=== PATIENT | male | born 1960 | race Caucasian/White ===

== ENCOUNTER → 2018-08-22 10:41 | Outpatient (CLI) | payer OTHER, SELFPAY ==
[2018-08-22 09:45] VITALS: BMI 30.4
--- NOTE | 2018-08-22 13:04 | PFT ---
INTRODUCTION: The patient is a 57-year-old male that presents for pulmonary function studies secondary to a diagnosis of shortness of breath. Respiratory therapy reports good patient effort. Bronchodilators were used during testing. INTERPRETATION: Forced expiration spirometry demonstrates the presence of a mild large airways obstructive ventilatory defect. There was no significant response to aerosolized bronchodilators, based upon strict ATS criteria. Spirograms are of good quality and plateau gradually indicating slow emptying of the lungs. Body plethysmography was performed and reveals an elevated TLC and RV, indicative of underlying hyperinflation and air-trapping. Diffusing capacity by single breath CO is within normal limits. IMPRESSION: These pulmonary function studies demonstrate the presence of an irreversible mild large airways obstructive ventilatory defect with associated hyperinflation and air-trapping. There are no previous pulmonary function studies available for comparison.
--- OUTSIDE RECORDS SUMMARY | 2018-10-26 19:31 | XMS RPT_ITS ---
:1960 Author Organization [facility] Care Team Providers Name Role Phone Festus Figueroa Attending Unavailable Meir Gar Referring Unavailable Festus Figueroa Attending Unavailable Festus Figueroa Referring Unavailable Meir Gar Primary Care Unavailable Omero Johnston D.O. Attending Unavailable Omero Johnston D.O. Referring Unavailable PROBLEMS PROBLEMS DATE TYPE CONDITION / CODE ATTENDING STATUS SOURCE 08/29/2018 Unknown R06.00 - Dyspnea, K[place] unspecified / D.O. Community R06.00(ICD-10) Hospital Repository 08/25/2018 Unknown R06.09 - Other Festus Figueroa Active [place] forms of dyspnea Community / R06.09(ICD-10) Hospital Repository PROCEDURES PROCEDURES No Procedure Records FoundRESULTS RESULTS PULMONARY FUNCTION Observed: 08/22/2018 Status: F Source: ALEJANDRO TEST 1:06 PM [facility] REPOSITORY [facility] Pulmonary Services/Neurology [address] [place] [address] MR#: [id number] Acct: [id number] Name: PATRICIA URBINA Rep #: [id number] : 1960 57 From: Omero Johnston DO Referring Dr: Festus Figueroa MD Status: REG CLI Ordering Dr: Date: Location: [facility] Sex: M C INTRODUCTION: The patient is a 57-year-old male that presents for pulmonary function studies secondary to a diagnosis of shortness of breath. Respiratory therapy reports good patient effort. Bronchodilators were used during testing. INTERPRETATION: Forced expiration spirometry demonstrates the presence of a mild large airways obstructive ventilatory defect. There was no significant response to aerosolized bronchodilators, based upon strict ATS criteria. Spirograms are of good quality and plateau gradually indicating slow emptying of the lungs. Body plethysmography was performed and reveals an elevated TLC and RV, indicative of underlying hyperinflation and air-trapping. Diffusing capacity by single breath CO is within normal limits. IMPRESSION: These pulmonary function studies demonstrate the presence of an irreversible mild large airways obstructive ventilatory defect with associated hyperinflation and air-trapping. There are no previous pulmonary function studies available for comparison. 08/22/18 1306 <Electronically signed by Omero Johnston DO> Date Omero Johnston DO CC: Festus Figueroa MD; Meir Gar MD Date Dictated: 08/22/18 1304 Date Transcribed: 08/22/181303 Field Account Director: DB Signed PULMONARY VISIT REPORT Observed: 08/22/2018 Status: F Source: ZOAR 12:10 PM [facility] REPOSITORY [facility] Pulmonary Medicine of [address] [place] [address] OFFICE VISIT Date of Service: 08/22/18 MR#: [id number] Acct: [id number] Name: PATRICIA URBINA Rep #: [id number] : 1960 Provider: Festus Figueroa MD Age/Sex: 57/M Location: [facility] [place] Status: Signed Assessment AND Plan Problems 1. Dyspnea on exertion R06.09 Plan Patient is reporting progression of respiratory status over the last 5-6 years. Differential diagnosis would include asthma, hypersensitivity pneumonitis or connective tissue associated pulmonary fibrosis. Discussed with the patient about the possibility of evaluating for CHF, but after review of the risks, benefits and alternatives, patient would like to limit testing if possible. Will obtain a complete PFT. Clinical suspicion that patient will be stepped off in therapy from Flovent to a combination inhaler if asthma is found. Otherwise, further testing may be necessary. Obtain complete PFT. No change in medications until further information is available. Orders Orders: Medications New: Plan Detail Follow Up 1 Month (BWA) HPI Asthma: Chief Complaint: Shortness of breath Details: Patient is a 57-year-old [place] gentleman, currently under the care of Dr. Gar, who presents for evaluation secondary to shortness of breath and frequent prednisone burst. Patient reports that he is noted increasing shortness of breath over the last 5-6 years. Patient states this is typically worse in the winter, but improves at night. Patient denies any problems with sleeping. Patient has been placed on Flovent daily with albuterol as needed, but states that he is been on a prednisone burst 3 times so far this winter. Patient does not believe that the Flovent is helping and is concerned about the side effects of continued prednisone. Patient does report rapid improvement with the use of steroids. Patient does report that he can occasionally have a cough productive of thick white sputum. This is typically worse when he is in acute exacerbation. Patient reports only a transient tobacco history. Patient denies any exposure to asbestos or TB. 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 Patient does use some chemicals, but denies any overwhelming exposures requiring evaluation. Patient denies any recent chest trauma. Documentation reviewed 4 pages of documentation from patient's primary care physician were reviewed. Patient reportedly does have a history of LVH, hypertension, hyperlipidemia, diverticulitis and possible BPH, in addition to the asthma. No PFTs are available for review. Patient has required prednisone multiple times over the last year. Patient is currently on Flovent. Outside CBC shows no significant eosinophilia, but carbon dioxide is elevated at 30 mmol/L HPI Comments Details: Intake Vital Signs08/22/18 Height 5 ft 4.5 in 08/22/18 Weight: 81.647 kg Intake Visit Reasons: Asthma Unit Controller Required: No Accompanied by: Self Allergies No Known Allergies Allergy (Verified 08/22/18 09:46) Medications fluticasone 220 mcg/actuation HFA aerosol inhaler 1 puff INHALATION Q12H 08/19/18 [History Confirmed 08/22/18] metoprolol succinate ER 100 mg tablet,extended release 24 hr 100 mg PO DAILY 08/19/18 [History Confirmed 08/22/18] albuterol sulfate HFA 90 mcg/actuation aerosol inhaler 2 puff INHALATION Q6H PRN 08/22/18 [History Confirmed 08/22/18] doxazosin 4 mg tablet 4 mg PO DAILY 08/22/18 [History Confirmed 08/22/18] PFSH Medical History Asthma (Chronic) Hypertension (Chronic) Surgical History History of tonsillectomy (Resolved) Social History Smoking Status: Former smoker how long ago did patient quit smokin, 0.25ppd second hand exposure: Yes Review of Systems Const CONSTITUTIONAL: Negative anorexia, body ache, chills, daytime sleepiness, fever(s), night sweats, oral thrush, stops breathing during sleep, weight loss, sleeping in chair, fatigue, weight loss, weight gain, frequent colds, seasonal allergies, other, headache(s) or orthopnea EETM Ear Nose Throat Mouth: Positive hearing normal; negative hard of hearing, hoarseness, dry mouth in morning, change in vision, itchy eyes, eye pain, swallowing Difficulty, ear pain, nose bleed, headache(s), mouth pain, nasal congestion, nasal discharge, post nasal drip, sinus pain, sinus pressure, sore throat or other Cardio Cardiovascular: Negative chest pain, chest pain at rest, chest pain with activity, irregular heart rhythm, edema, shortness of breath when lying down, palpitations, murmur or other Resp Respiratory: Positive as per HPI, shortness of breath shortness of breath: Positive with activity, wheezing, cough cough: Positive productive color: Positive thick and white and non-productive, chest tightness and increase use of rescue inhalers; negative pain with cough, chest congestion, pain on inspiration, inhalers, snoring, apnea or other Gastro Gastrointestional: Negative bloody stools, change in appetite, difficulty swallowing, reflux, hematemesis, melena stool, loose stool, constipation or other Genitourinary: Negative blood in urine, nocturia, pain with urination or other Musc Musculoskeletal: Negative body pain, back pain, neck pain or other Skin/Breast Skin/Breast: Negative dry skin, itching, rash, unusual bruising, breast lump or other Neuro Neurological: Negative restless legs, confusion, weakness or other Psych Psychocological: Negative abnormal sleep pattern, anxiety, thoughts of hurting self/others, hopelessness or other Lymph Lymphatic: Negative easy bleeding, easy bruising, swollen lymph nodes or other Exam Const Constitutional: Positive conversant, cooperative, in no acute respiratory distress, healthy appearing, well developed, well nourished, good hygiene and obese; negative appears older than stated age, wearing supplemental oxygen or ill appearing Head Head: Positive normocephalic and atraumatic; negative cyanosis of lips/distal nose, frontal sinus tenderness or maxillary sinus tenderness Eyes Eye: Positive clear conjunctiva; negative nystagmus, scleral abnormality or cataract present Ears Ear: Positive hearing normal; negative hard of hearing Nose Nose: Positive external nose normal, septum normal and no nasal discharge; negative epistaxis or nasal polyp Mouth Mouth: Positive oral mucosae normal, no lesions and crowded posterior oropharynx; negative post nasal drip, malodorous breath or oral thrush present Mallampati Score: III: Mallampati Score Neck Neck: Positive normal visual inspection, full ROM and trachea midline; negative lymphadenopathy or JVD Chest Wall Chest: Positive normal inspection of the chest and symmetric chest movement; negative crepitus or tenderness Resp lung sounds: Positive clear to auscultation, good air exchange, normal expiratory time and normal respiratory effort; negative wheezes, rhonchi, rales, use of accessory muscles, wheeze present on forced exhalation or dullness to percussion Cardio Cardiac: Positive regular rate, regular rhythm, S1 normal and S2 normal; negative murmur, rub or gallop GI GI: Positive normal to inspection, normal bowel sounds and obese; negative distended, ascites or epigastric tenderness Genitourinary: Positive deferred Musc Musculoskeletal: Positive steady gait; negative using an assistive device for ambulation, kyphosis or scoliosis Skin Pulmonary Skin Exam: Positive intact; negative rash, lesion, ulcers, erythema or dermal atrophy Pulses Pulse: Yes radial pulses present Extremities Extremities: Yes capillary refill normal, No clubbing, No cyanosis, No edema, No stasis dermatitis Neuro Neurologic: Yes conversant, Yes no focal neuro deficits, Yes normal coordination, Yes normal concentration, Yes cooperative, Yes normal cognition Lymph Lymphatic: No lymphadenopathy Psych Appearance: Positive grossly normal Mental Status: Positive mental status grossly normal Mood: Positive congruent mood Affect: Positive normal affect Coding Level of Care Code Off vis,new,level 3 Diagnoses Dyspnea on exertion R06.09 Dyspnea type: dyspnea on exertion 08/22/18 1210 <Electronically signed by Festus Figueroa MD> Date Festus Figueroa MD Cosigner Signature: Date (if applicable) CC: Meir Gar MD ALLERGIES ALLERGIES DATE TYPE / CODE NAME / CODE REACTION SEVERITY SOURCE 08/22/2018 Drug No Known Unknown [place] [facility] Allergy/4160 Allergies/F00 Hospital 46036(SNOMED [id number](RXNOR Repository CT) M) ENCOUNTERS ENCOUNTERS ADMIT/DISCHARGE ACCOUNT ADMITTING ENCOUNTER LOCATION SOURCE NUMBER CLASS 08/22/2018 [id number] Ambulatory [place] [facility] ing:PSN Repository 08/22/2018 [id number] Ambulatory BMSBuilding:W [place] [facility] Repository 08/22/2018/ [id number] Ambulatory BMSBuilding:B [place] 9 2 MS.PMW [facility] Repository PAYERS PAYERS ENCOUNTER GUARANTOR PAYER SUBSCRIBER SOURCE 08/22/2018 PATRICIA Foley Primary PATRICIA Haney [id number] Insurance:OBWCPolicy HOCHSTETLERDOB: [facility] NIKKI RDAPPLE [place]: [id number] Date: Repository [address]Szt: [phone] [place], [place] [phone] ( [id number]: 08/22/2018 Secondary NOT GIVENUNK [place] Insurance:SELF PAY [facility] Number: Effective Repository Date:2018-08-22 08/22/2018 PATRICIA Foley Primary PATRICIA [place] [id number] Insurance:OBWCPolicy [facility] RDAPPLE Number: Effective [id number] Date: Repository [address]Wwe: [phone] YY [place], [place] [phone] ( [id number]: 08/22/2018 Secondary NOT GIVENUNK [place] Insurance:SELF PAY [facility] Number: Effective Repository Date:2018-08-22 08/22/2018 PATRICIA Foley Primary NOT GIVENUNK [place] [id number] Insurance:SELF PAY [place] Number: Effective Repository [phone]: [phone] Date:2018-08-19 ()
== END ==
PROVIDERS: Family Provider Family Medicine; PCP Family Medicine; Referring Provider Internal Medicine Critical Care Medicine; Visit Provider Internal Medicine Critical Care Medicine
DX: R06.00 Dyspnea, unspecified (principal)
CPT/HCPCS: 94060; 94726; 94729

== ENCOUNTER → 2018-09-12 13:05 | Outpatient (CLI) | payer OTHER, SELFPAY ==
[2018-09-12 11:07] VITALS: BMI 30.4
[2018-09-12 13:54] LABS: Absolute Lymphocyte Count 1.29 X10^3/ul (0.83-4.51); Absolute Neutrophil Count 3.5 X10^3/uL (2.0-7.7); Basophil# 0.03 X10^3/uL; Basophil% 0.5 % (0-1); Eosinophil# 0.71 X10^3/uL; Eosinophils% 11.5 % (0-5); Hematocrit 46.1 % (40-54); Hemoglobin 16.2 g/dl (13.0-16.5); Lymphocyte # 1.29 X10^3/ul (4.0); Lymphocyte % 20.8 % (19-41); Mean Corp Hgb Conc 35.1 g/gl (32-36); Mean Corpuscular Hgb 31.1 pg (27.0-32.0); Mean Corpuscular Volume 88.5 fL (80-94); Mean Platelet Vol. 8.9 fl (6.2-12.0); Monocyte# 0.68 X10^3/uL; Neutrophil # 3.48 X10^3/uL (2.7-7.7); Neutrophil % 56.2 % (47-70); POSITIVE COUNT NO; POSITIVE DIFFERENTIAL NO; POSITIVE MORPHOLOGY NO; Platelet Count 189 K/mm3 (150-450); RBC Distribution Width CV 12.6 % (11.6-14.6); RBC Distribution Width SD 40.7 fl (35.1-43.9); Red Blood Count 5.21 M/mm3 (4.6-6.2); White Blood Count 6.2 K/mm3 (4.4-11.0)
--- NOTE | 2018-09-12 13:55 | RAD_ITS ---
STUDY: X-RAY CHEST REASON FOR EXAM: Male, 57 years old. Shortness of breath/dyspnea. TECHNIQUE: PA and lateral views of the chest. COMPARISON: None. FINDINGS: Hyperinflation. Scattered calcified granulomas. Decreased bronchovascular markings suggestive of emphysematous changes. There is no demonstrated pleural abnormality. Normal size heart. Normal mediastinum and salma. Normal visualized pulmonary arteries. Normal visualized aortic arch and descending thoracic aorta. There are degenerative changes of the visualized thoracic spine. Normal visualized ribs, clavicles, and shoulders. There is no demonstrated abnormality of the visualized soft tissue structures of the upper abdomen. RAD/Chest PA and Lateral IMPRESSION: Hyperinflation. No acute abnormality is seen. Electronically Signed: Francisco Zamudio MD at 14:20 EST , Service support ,
[2018-09-12 14:14] LABS: Anion Gap 9 (5-15); BUN 12 mg/dL (7-18); BUN/Creat Ratio 11.3 RATIO (10-20); Calcium,Total 8.7 mg/dL (8.5-10.1); Chloride 107 mmol/L (98-107); Creatinine, Serum 1.06 mg/dL (0.70-1.30); EST Glomerular Filtration Rate 77 mL/min (>60); Est Glom Filt Rate - Afr Amer 93 mL/min (>60); Glucose 103 mg/dL (74-106); Potassium 3.9 mmol/L (3.5-5.1); Sodium Level 143 mmol/L (136-145)
[2018-09-12 14:21] LABS: BNP,B-Type NATRIURETIC PEPTIDE 10.9 pg/mL (0-100)
== END ==
PROVIDERS: Family Provider Family Medicine; PCP Family Medicine; Referring Provider Nurse Practitioner Acute Care; Visit Provider Nurse Practitioner Acute Care
DX: R06.09 Other forms of dyspnea (principal)
CPT/HCPCS: 36415; 71046; 80048; 83880; 85025

== ENCOUNTER → 2018-12-03 | Outpatient (CLI) | payer OTHER, SELFPAY ==
[2018-12-03 08:08] VITALS: BMI 30.4
[2018-12-03 09:04] LABS: Absolute Lymphocyte Count 1.33 X10^3/ul (0.83-4.51); Absolute Neutrophil Count 2.7 X10^3/uL (2.0-7.7); Basophil# 0.04 X10^3/uL; Basophil% 0.7 % (0-1); Eosinophil# 0.55 X10^3/uL; Eosinophils% 10.2 % (0-5); Hematocrit 46.3 % (40-54); Hemoglobin 15.9 g/dl (13.0-16.5); Lymphocyte # 1.33 X10^3/ul (4.0); Lymphocyte % 24.6 % (19-41); Mean Corp Hgb Conc 34.3 g/gl (32-36); Mean Corpuscular Hgb 29.7 pg (27.0-32.0); Mean Corpuscular Volume 86.5 fL (80-94); Mean Platelet Vol. 9.3 fl (6.2-12.0); Monocyte# 0.73 X10^3/uL; Monocyte% 13.5 % (0-10); Neutrophil # 2.74 X10^3/uL (2.7-7.7); Neutrophil % 50.8 % (47-70); Platelet Count 202 K/mm3 (150-450); RBC Distribution Width CV 13.2 % (11.6-14.6); RBC Distribution Width SD 41.1 fl (35.1-43.9); Red Blood Count 5.35 M/mm3 (4.6-6.2); White Blood Count 5.4 K/mm3 (4.4-11.0)
[2018-12-03 09:06] LABS: POSITIVE COUNT NO; POSITIVE DIFFERENTIAL NO; POSITIVE MORPHOLOGY NO
[2018-12-06 20:06] LABS: Aspirgillus flavus Negative (Neg:<1:1); Aspirgillus fumigatus Negative (Neg:<1:1); Aspirgillus niger Negative (Neg:<1:1)
[2018-12-07 09:10] LABS: Immunoglobulin G 1035 mg/dL (700-1600)
[2018-12-10 22:07] LABS: Alternaria alternata <0.10 kU/L (Class 0); Bermuda Grass <0.10 kU/L (Class 0); Bluegrass, Kentucky <0.10 kU/L (Class 0); Cat Hair/Dander, Standard <0.10 kU/L (Class 0); D farinae Mite <0.10 kU/L (Class 0); D pteronyssinus <0.10 kU/L (Class 0); Dog Epithelia <0.10 kU/L (Class 0); Elm, American White <0.10 kU/L (Class 0); Oak, White <0.10 kU/L (Class 0); Plantain, English <0.10 kU/L (Class 0); Ragweed, Short/Common <0.10 kU/L (Class 0)
[2018-12-11 15:55] LABS: Mouse Urine <0.10 kU/L (Class 0)
== END | disposition home or self-care (01) ==
LOC: PAVLAB 08:37
PROVIDERS: Family Provider Family Medicine; PCP Family Medicine; Referring Provider Nurse Practitioner Acute Care; Visit Provider Nurse Practitioner Acute Care
DX: J45.909 Unspecified asthma, uncomplicated (principal)
CPT/HCPCS: 36415; 82784; 85025; 86003; 86606

== ENCOUNTER → 2019-03-24 | Outpatient (CLI) | payer OTHER, SELFPAY ==
[2019-03-24 08:28] VITALS: BMI 30.4
[2019-03-24 09:32] LABS: Absolute Lymphocyte Count 1.48 X10^3/uL (0.83-4.51); Absolute Neutrophil Count 4.7 X10^3/uL (2.0-7.7); Basophil# 0.05 X10^3/uL; Basophil% 0.6 % (0-1); Eosinophil# 0.68 X10^3/uL; Eosinophils% 8.4 % (0-5); Hemoglobin 15.4 g/dL (13.0-16.5); Lymphocyte # 1.48 X10^3/ul (4.0); Lymphocyte % 18.3 % (19-41); Mean Corpuscular Hgb 31.1 pg (27.0-32.0); Mean Corpuscular Volume 88.9 fL (80-94); Mean Platelet Vol. 9.1 fl (6.2-12.0); Monocyte# 1.18 X10^3/uL; Monocyte% 14.6 % (0-10); NRBC Flagged by Analyzer 0 % (0-5); Neutrophil # 4.65 X10^3/uL (2.7-7.7); Neutrophil % 57.6 % (47-70); Platelet Count 192 K/mm3 (150-450); RBC Distribution Width CV 12.5 % (11.6-14.6); Red Blood Count 4.95 M/mm3 (4.6-6.2); White Blood Count 8.1 K/mm3 (4.4-11.0)
== END | disposition home or self-care (01) ==
PROVIDERS: Family Provider Family Medicine; PCP Family Medicine; Referring Provider Nurse Practitioner Acute Care; Visit Provider Nurse Practitioner Acute Care
DX: J45.909 Unspecified asthma, uncomplicated (principal)
CPT/HCPCS: 36415; 85025

== ENCOUNTER → 2019-10-13 08:20 | Outpatient (CLI) | payer OTHER, SELFPAY ==
[2019-08-25 07:48] VITALS: BMI 30.4
--- NOTE | 2019-10-13 08:57 | RAD_ITS ---
STUDY: X-RAY CHEST REASON FOR EXAM: Male, 58 years old. Recent Asthma issues, shortness of breath. TECHNIQUE: PA and lateral views of the chest. COMPARISON: Previous study of September 12, 2018 FINDINGS: The lungs are clear and expanded. There is no demonstrated pleural abnormality. Normal size heart. Normal mediastinum and salma. Normal visualized pulmonary arteries. Normal visualized aortic arch and descending thoracic aorta. Normal visualized thoracic spine. Normal visualized ribs, clavicles, and shoulders. There is no demonstrated abnormality of the visualized soft tissue structures of the upper abdomen. RAD/Chest PA and Lateral IMPRESSION: No acute cardiopulmonary disease process is seen. Electronically Signed: Hardy Fernandez MD at 19:50 EDT , Service support ,
[2019-10-13 09:32] LABS: Absolute Lymphocyte Count 1.39 X10^3/uL (0.83-4.51); Absolute Neutrophil Count 3.2 X10^3/uL (2.0-7.7); Basophil# 0.04 X10^3/uL; Basophil% 0.6 % (0-1); Eosinophil# 0.59 X10^3/uL; Eosinophils% 9.6 % (0-5); Hematocrit 44.7 % (40-54); Hemoglobin 15.3 g/dL (13.0-16.5); Lymphocyte # 1.39 X10^3/ul (4.0); Lymphocyte % 22.5 % (19-41); Mean Corp Hgb Conc 34.2 g/dL (32-36); Mean Corpuscular Hgb 30.2 pg (27.0-32.0); Mean Corpuscular Volume 88.3 fL (80-94); Mean Platelet Vol. 9.3 fl (6.2-12.0); Monocyte# 0.94 X10^3/uL; Monocyte% 15.2 % (0-10); NRBC Flagged by Analyzer 0 % (0-5); Neutrophil # 3.19 X10^3/uL (2.7-7.7); Neutrophil % 51.8 % (47-70); Platelet Count 202 K/mm3 (150-450); RBC Distribution Width CV 13.1 % (11.6-14.6); RBC Distribution Width SD 42.2 fl (35.1-43.9); Red Blood Count 5.06 M/mm3 (4.6-6.2); White Blood Count 6.2 K/mm3 (4.4-11.0)
[2019-10-16 20:07] LABS: Alpha Antitrypsin Serum 82 mg/dL (101-187)
[2019-10-17 15:06] LABS: Immunoglobulin E 59 IU/mL (6-495)
== END ==
PROVIDERS: PCP Family Medicine
DX: J30.9 Allergic rhinitis, unspecified (principal); J45.50 Severe persistent asthma, uncomplicated; J32.9 Chronic sinusitis, unspecified; E55.9 Vitamin D deficiency, unspecified; E07.9 Disorder of thyroid, unspecified; R06.00 Dyspnea, unspecified; T78.3XXD Angioneurotic edema, subsequent encounter; T78.09XD Anaphylactic reaction due to other food products, subsequent encounter; Z91.038 Other insect allergy status
CPT/HCPCS: 36415; 71046; 82103; 82104; 82785; 85025

== ENCOUNTER → 2025-06-23 | Outpatient (CLI) | payer OTHER, SELFPAY ==
[2025-06-23 15:54] LABS: Hematocrit 41.2 % (40-54); Hemoglobin 15.0 g/dL (13.0-16.5); Immature Granulocytes Count 0.010 X10^3/uL (0.0-0.0); Mean Corp Hgb Conc 36.4 g/dL (32-36); Mean Corpuscular Volume 88.0 fL (80-94); Mean Platelet Vol. 9.4 fl (6.2-12.0); NRBC Flagged by Analyzer 0 % (0-5); Platelet Count 223 K/mm3 (150-450); RBC Distribution Width CV 12.4 % (11.6-14.6); RBC Distribution Width SD 40.0 fl (35.1-43.9); Red Blood Count 4.68 M/mm3 (4.6-6.2); White Blood Count 5.8 K/mm3 (4.4-11.0)
[2025-06-23 16:34] LABS: Anion Gap 9 (5-15); BUN 17 mg/dL (4-19); BUN/Creat Ratio 17.5 RATIO (10-20); Calcium,Total 8.6 mg/dL (7.6-11.0); Carbon Dioxide 25.4 mmol/L (21.0-32.0); Chloride 102 mmol/L (98-108); Glucose 118 mg/dL (70-99); Potassium 3.9 mmol/L (3.3-5.1)
== END | disposition home or self-care (01) ==
LOC: LAB 15:34
PROVIDERS: Referring Provider Physician Assistant; Visit Provider Physician Assistant
DX: Z01.818 Encounter for other preprocedural examination (principal)
CPT/HCPCS: 36415; 80048; 85025

== ENCOUNTER 2025-06-30 03:55 | Emergency (ER) | payer OTHER, SELFPAY ==
[2025-06-30 03:57] VITALS: BP 147/74; PULSE 93; RESP 16; TEMP 36.8; O2SAT 96; BMI 32.5
[2025-06-30] MEDS: Lidocaine Jelly 2% 20 ML Syringe (URO-JET) 1 APPLIC TOPICAL (04:10)
--- NOTE | 2025-06-30 04:11 | EX.ED.DYSGE1 ---
HPI History of Present Illness Chief Complaint: Complaint Informant: patient and spouse/S.O. Narrative Narrative: Patient is a 64-year-old male with past medical history of asthma and hypertension. He states that he had bilateral knee surgeries yesterday. He reports that starting roughly 12 hours prior to arrival he noticed his urine stream was extremely weak and was almost dripping. As time passed he states he was no longer able to urinate. He reports now he has generalized lower abdominal pain because of this. He denies any fevers or chills or rectal discharge or pain with defecation. He states other than the anesthesia from his recent surgery he does not take Sudafed or allergy medication such as Benadryl. He denies any recent trauma to the genital region either. However as he now has the inability urinate with increasing abdominal pain he presents for evaluation [facility] Medical History (Updated 06/30/25 @ 05:[address] Robert Cueto, DO) Asthma Hypertension Home Medications ?Medication ?Instructions ?Recorded ?Last Taken ?Type doxazosin 4 mg tablet 2 mg PO DAILY 08/22/18 Unknown History benralizumab 30 mg/mL subcutaneous 30 mg subcut Q8W 12/06/20 Unknown History syringe (Fasenra) fluticasone fur. 100 mcg-umeclid 1 inh inhalation DAILY #3 device 12/06/20 Unknown Rx 62.5 mcg-vilant 25 mcg inhalat.powder (Trelegy Ellipta) hydrochlorothiazide 12.5 mg tablet 12.5 mg PO QDAY 06/30/25 Unknown History telmisartan 40 mg tablet 40 mg PO DAILY 06/30/25 Unknown History Allergy/AdvReac Type Severity Reaction Status Date / Time No Known Allergies Allergy Verified 06/30/25 03:58 Surgical History History of tonsillectomy Social History (Updated 08/25/19 @ 10:41 by Halina Perry DEVELOPMENT TEAM LEAD, DEVELOPMENT TEAM LEAD-C) Smoking Status: Never smoker how long ago did patient quit smokin, 0.25ppd second hand exposure: Yes ROS ROS ED Constitutional Constitutional ED: Denies chills or fever(s) Cardiovascular Cardiovascular: Denies chest pain Respiratory/Chest Respiratory/Chest: Denies cough or dyspnea Gastrointestinal Gastrointestinal: Reports abdominal pain; Denies diarrhea, nausea or vomiting Genitourinary Genitourinary ED: Reports other Details: Positive anuria Musculoskeletal Musculoskeletal: Denies back pain Integumentary Denies rash Neurologic Neurologic: Denies headache(s) Hematologic/Lymphatic Hematologic/Lymphatic: Denies easy bleeding or easy bruising EXAM Physical Exam Const Vital Signs: 06/30/25 03:57 Temperature 98.3 F Temperature Source Oral Pulse Rate 93 Respiratory Rate 16 Blood Pressure 147/74 H Blood Pressure Mean 98 Pulse Ox 96 Oxygen Delivery Method Room Air Positive well nourished and well developed General Appearance ED: well developed; Negative for pallor HEENT HEENT Narrative: Normocephalic atraumatic Eyes PERRL and EOMs intact bilaterally General Eye ED: Negative for scleral icterus Neck supple and no JVD Resp normal respiratory effort and clear to auscultation bilaterally Cardio regular rate and regular rhythm Rate: other Other Details: Heart is regular rate and rhythm Radial and carotid pulses are equal and symmetric GI non-tender GI Narrative: There is abdominal distention in the midline lower abdomen/suprapubic region with organomegaly present at this site as well. This is consistent with a distended bladder. There is pain on palpation over top the distended bladder. However no voluntary guarding or rigidity. No pulsatile mass The upper abdomen is soft and nontender. Auscultation: normoactive bowel sounds Palpation: soft Narrative: Normal uncircumcised male without blood or discharge from the urethral meatus No testicular swelling or masses noted No soft tissue changes to suggest Anthony's gangrene Back/Spine no CVA tenderness Extremity Extremity Narrative: +1 pitting edema to the bilateral lower extremities consistent with recent operation Negative Homans' sign bilaterally Neuro oriented x3 and CN's II-XII intact bilaterally Sensorium / Orientation: alert Psych mental status grossly normal Skin no rashes or lesions noted General Skin Exam: Negative for jaundice or pallor MDM MDM MDM Narrative Medical decision making narrative: Patient arrived to the ER slightly hypertensive otherwise with stable vitals. He has known BPH and with his recent knee surgery he most likely developed spasms of the prostate from the provide anesthesia. Is been only roughly 12 hours since his last urination and therefore I have low concern for acute kidney injury and do not feel the need for laboratory studies. However as his history exam and bladder scan were all indicate urinary retention a Guzman catheter was placed. After the catheter was placed he had complete resolution of his abdominal discomfort and the organomegaly from the distended bladder resolved as well. He was washed in the ER and the catheter continue to drain without blood or difficulty. Therefore at this time as there is been resolution of his urinary retention and he is not having active bleeding there is no need for emergent urology consultation or further evaluation in the ER and is otherwise safe for discharge. History & Record Review Discussion w/independent historian: Patient Discharge Plan Triage Chief Complaint: Complaint ED Provider: Robert Cueto Dx/Rx/DC Orders Clinical Impression: Acute urinary retention, Hypertension, BPH (benign prostatic hyperplasia) Instructions: ED Guzman Catheter, Care, ED Urinary Retention, Male Prescriptions: No Action doxazosin 4 mg tablet 2 mg PO DAILY Fasenra 30 mg/mL syringe 30 mg subcut Q8W Trelegy Ellipta 100-62.5-25 mcg blister with device 1 inh INHALATION DAILY Qty: 3 3RF telmisartan 40 mg tablet 40 mg PO DAILY hydrochlorothiazide 12.5 mg tablet 12.5 mg PO QDAY Primary Care Provider: Care Physician,No Primary Referrals: Care Physician,No Primary [Primary Care Provider, Medical] Kimani Ghosh PA [Allied Health Professional, Urology] Referral Note: Urinary retention Activity Restrictions/Additional Instructions: Please follow-up with the urology for repeat evaluation regarding your urinary retention and to discuss removal of the Guzman catheter. Kimani Ghosh is affiliated with the [facility] and used to work at the main campus but now sees patients at [facility] [place]. The address for this location is [address] [place] [id number]. Please call [phone] to schedule an appointment. If your catheter stops draining or you have any further concerns please return to the ER for repeat evaluation. Print Language: Georgian Disposition Disposition: Home, Self Care
--- OUTSIDE RECORDS SUMMARY | 2025-06-30 05:04 | XMS RPT_ITS | CCD ---
Author Organization [facility] Care Team Providers Care It Program Manager Name Role Phone TAMAR SNELL DR Primary Care Unavailable TAMAR SNELL DR Attending Unavailable TAMAR SNELL DR Admitting Unavailable SUSAN EVERETT Consulting Unavailable PROVIDER, UNKNOWN Consulting Unavailable SUSAN EVERETT Consulting Unavailable TAMAR SNELL DR Admitting Unavailable TAMAR SNELL DR Primary Care Unavailable TAMAR SNELL DR Attending Unavailable PROVIDER, UNKNOWN Consulting Unavailable TAMAR SNELL DR Primary Care Unavailable TAMAR SNELL DR Attending Unavailable TAMAR SNELL DR Admitting Unavailable SUSAN EVERETT Consulting Unavailable PROVIDER, UNKNOWN Consulting Unavailable Problems Problem Classification Problem Date Documented Date Episodic/Chronic Osteoarthritis (3 sources) Bilateral primary osteoarthritis of knee; Translations: [Bilateral primary osteoarthritis of knee] Onset: 05-03-2025 Chronic Results Test Name Value Interpretation Reference Range Facil ity ALBUMIN PLASMAon 05-03-2025 Albumin [Mass/Vol] 3.6 g/dL Normal 3.4 - 5.0 [facility] Comment on above: Performed By: #### 2 [id number] #### [facility],[address] [place] [address] 02321 BMP with eGFRon 05-03-2025 AGE 64 years Normal [facility] Comment on above: Performed By: #### 2 71092 #### [facility],[address] [place] [address] 76213 Anion gap [Moles/Vol] 7 mmol/L Low 10 - 20 [facility] Comment on above: Performed By: #### 2 42849 #### [facility],[address] [place] [address] 42575 BMP with eGFR Normal [facility] Comment on above: Result Comment: BASI C METABOLIC PANEL Performed By: #### 2 55008 #### [facility],[address] [place] [address] 42075 Calcium [Mass/Vol] 8.4 mg/dL Low 8.5 - 10.1 [facility] Comment on above: Performed By: #### 2 02841 #### [facility],[address] [place] [address] 62582 Chloride [Moles/Vol] 101 mmol/L Normal 98 - 107 [facility] Comment on above: Performed By: #### 2 69449 #### [facility],[address] [place] [address] 74676 CO2 [Moles/Vol] 31.8 mmol/L Normal 21.0 - 32.0 [facility] Comment on above: Performed By: #### 2 30345 #### [facility],[address] [place] [address] 39912 Creatinine [Mass/Vol] 1.02 mg/dL Normal 0.70 - 1.30 [facility] Comment on above: Performed By: #### 2 41435 #### [facility],[address] [place] [address] 93061 GFR/1.73 sq M.predicted among non-blacks MDRD (S/P/Bld) [Vol rate/Area] mL/min/{1.73_m2} Normal 60 - 999 [facility] Comment on above: Performed By: #### 2 92498 #### [facility],[address] [place] [address] 14500 Result Comment: ACCO RDING TO THE NATIONAL KIDNEY DISEASE EDUCATION PROGRAM(NKDE), A NORMAL eGFR IS A VALUE GREATER THAN OR EQUAL TO 60 ML/MIN/1.73 SQ METERS. CHRONIC KIDNEY DISEASE: <60mL/MIN/1.73 SQ METERS KIDNEY FAILURE: <15mL/MIN/1.73 SQ METERS THIS TEST SHOULD ONLY BE USED FOR PATIENTS 18 YEARS OF AGE AND OLDER. Glucose [Mass/Vol] 91 mg/dL Normal 74 - 106 [facility] Comment on above: Performed By: #### 2 35863 #### [facility],[address] [place] [address] 56948 Potassium [Moles/Vol] 3.6 mmol/L Normal 3.5 - 5.1 [facility] Comment on above: Performed By: #### 2 79709 #### [facility],[address] [place] [address] 65773 Sodium [Moles/Vol] 136 mmol/L Normal 136 - 145 [facility] Comment on above: Performed By: #### 2 11032 #### [facility],[address] [place] [address] 76706 Urea nitrogen [Mass/Vol] 14 mg/dL Normal 7 - 18 [facility] Comment on above: Performed By: #### 2 28896 #### [facility],[address] [place] [address] 98398 CBC + DIFFon 05-03-2025 Baso # 0.03 x10EE3/UL Normal 0.00 - 0.10 [facility] Comment on above: Performed By: #### 2 81539 #### [facility],[address] [place] [address] 50583 Basophils/100 WBC (Bld) 0.4 % Normal 0.0 - 2.0 [facility] Comment on above: Performed By: #### 2 60230 #### [facility],[address] [place] [address] 78863 CBC + DIFF Normal [facility] Comment on above: Result Comment: CBC- COMPLETE BLOOD COUNT Performed By: #### 2 26113 #### [facility],[address] [place] [address] 68490 EO # 0.02 x10EE3/UL Normal 0.00 - 0.50 [facility] Comment on above: Performed By: #### 2 62807 #### [facility],[address] [place] [address] 99779 Eosinophils/100 WBC (Bld) 0.3 % Normal 0.0 - 7.0 [facility] Comment on above: Performed By: #### 2 42728 #### [facility],[address] [place] [address] Erythrocyte distribution width (RBC) [Ratio] 13.0 % Normal 12.0 - 15.6 [facility] Comment on above: Performed By: #### 2 64401 #### [facility],[address] [place] [address] Hematocrit (Bld) [Volume fraction] 44.5 % Normal 40.0 - 52.0 [facility] Comment on above: Performed By: #### 2 44785 #### [facility],[address] [place] [address] Hemoglobin (Bld) [Mass/Vol] 15.4 g/dL Normal 13.0 - 17.5 [facility] Comment on above: Performed By: #### 2 80598 #### [facility],[address] [place] [address] Lymph # 1.09 x10EE3/UL Normal 0.80 - 2.80 [facility] Comment on above: Performed By: #### 2 21863 #### [facility],[address] [place], [place] [address] Lymphocytes/100 WBC (Bld) 17.3 % Low 20.0 - 45.0 [facility] Comment on above: Performed By: #### 2 99937 #### [facility],[address] [place] [address] 73156 MANUAL DIFF N/A Normal [facility] Comment on above: Performed By: #### 2 23281 #### [facility],[address] [place] [address] 30367 MCH (RBC) [Entitic mass] 31 pg Normal 27 - 33 [facility] Comment on above: Performed By: #### 2 38472 #### [facility],[address] [place] [address] MCHC 35 X10 3 Normal 32 - 36 [facility] Comment on above: Performed By: #### 2 91601 #### [facility],[address] [place] [address] MCV (RBC) [Entitic vol] 90 fL Normal 81 - 98 [facility] Comment on above: Performed By: #### 2 23547 #### [facility],[address] [place] [address] [place] # 0.83 x10EE3/UL Normal 0.20 - 1.00 [facility] Comment on above: Performed By: #### 2 04667 #### [facility],[address] [place] [address] MONOS % 13.2 % High 0.0 - 10.0 [facility] Comment on above: Performed By: #### 2 58564 #### [facility],[address] [place] [address] Morphology Francisco (Bld) [Interp] N/A Normal [facility] Comment on above: Performed By: #### 2 58393 #### [facility],[address] [place] [address] Neut # 4.34 x10EE3/UL Normal 1.50 - 7.10 [facility] Comment on above: Performed By: #### 2 26389 #### [facility],[address] [place] [address] Neutrophils/100 WBC (Bld) 68.9 % Normal 46.0 - 76.0 [facility] Comment on above: Performed By: #### 2 66456 #### [facility],[address] [place] [address] PLATELET 215 x10EE3/UL Normal 150 - [address] [facility] Comment on above: Performed By: #### 2 17426 #### [facility],[address],[place] [address] Platelet mean volume (Bld) [Entitic vol] 7.5 fL Normal 6.4 - 10.5 [facility] Comment on above: Result Comment: AUTO MATED DIFFERENTIAL Performed By: #### 2 34055 #### [facility],[address] [place] [address] 65284 RBC 4.97 x 10EE6/UL Normal 4.50 - 6.00 [facility] Comment on above: Performed By: #### 2 31455 #### [facility],[address] [place] [address] 81279 WBC 6.3 x 10EE3/UL Normal 4.5 - 10.8 [facility] Comment on above: Performed By: #### 2 14159 #### [facility],[address] [place] [address] LOWER EXTREMITY LT WOon 0 05-03-2025 CT LOWER EXTREMITY LT WO [address] ? [place] [address] ? Patient: PATRICIA URBINA Phone#: : 1960 Age: 64 Gender: M Pt. Type: Out Account: [id number] Location: Ordering: TAMAR [place] Exam Date: 05/03/2025/8:57 Family Phys: SUSAN EVERETT Charge Code: 111710 Physician: Pondera Order #: [id number] Dose#: 12.10 mGy PROCEDURE: CT LOWER EXTREMITY LT WO CONTRAST COMPARISON: None. INDICATIONS: [place]. TECHNIQUE: Multi-planar CT images were created without intravenous contrast. All CT scans at this facility use dose modulation, iterative reconstruction, and/or weight based dosing when appropriate to reduce radiation dose to as low as reasonably achievable. IV CONTRAST: No IV contrast used,0.0ml TOTAL DOSE: 12.10 CTDIvol(mGy) FINDINGS: BONES: Moderate degenerative changes of the knee are present. There is tricompartmental narrowing. Osteophytes are present at the medial and lateral femoral condyles and lateral tibial plateau. SOFT TISSUES: Negative. No visible soft tissue swelling. EFFUSION: A small joint effusion is present. Small popliteal cyst is present. OTHER: A grouping of loose bodies is present posteriorly at the intercondylar notch. The largest measures 5.9 millimeters. CONCLUSION: 1. Moderate degenerative changes of the knee are present. 2. Small popliteal cyst is present. 3. A grouping of loose bodies is present posteriorly at the notch. Dictated by: Ximena Mandujano MD on 05/03/2025 at 12:38 Approved by: Ximena Mandujano MD on 05/03/2025 at 12:50 Normal [facility] CT LOWER EXTREMITY RT WOon 0 05-03-2025 CT LOWER EXTREMITY RT [address] ? [place] [address] ? Patient: PATRICIA URBINA Phone#: : 1960 Age: 64 Gender: M Pt. Type: Out Account: [id number] Location: Ordering: TAMAR SNELL Exam Date: 05/03/2025/9:03 Family Phys: SUSAN EVERETT Charge Code: [id number] Physician: Pondera Order #: [id number] Dose#: 12.40 mGy PROCEDURE: CT LOWER EXTREMITY RT WO CONTRAST COMPARISON: None. INDICATIONS: [place]. TECHNIQUE: Multi-planar CT images were created without intravenous contrast. All CT scans at this facility use dose modulation, iterative reconstruction, and/or weight based dosing when appropriate to reduce radiation dose to as low as reasonably achievable. IV CONTRAST: No IV contrast used,0.0ml TOTAL DOSE: 12.40 CTDIvol(mGy) FINDINGS: BONES: Moderate degenerative changes of the knee are present. There is tricompartmental narrowing but greatest at the lateral patellofemoral joint. There is a well-marginated 8.0 millimeter hypodense proximal tibial lesion. SOFT TISSUES: Negative. No visible soft tissue swelling. EFFUSION: Small joint effusion is present. OTHER: Negative. CONCLUSION: 1. Moderate degenerative changes of the knee are present. 2. There is an 8.0 millimeter hypodense cortical lesion in the posterior proximal tibial metaphysis. Dictated by: Ximena Mandujano MD on 05/03/2025 at 12:50 Approved by: Ximena Mandujano MD on 05/10/2025 at 13:45 Normal [facility] Pulmonary Visit Reporton Pulmonary Visit Report [facility] [address] [place] [address] OFFICE VISIT Date of Service: 12/06/20 MR#: [id number] Acct: [id number] Name: PATRICIA URBINA Rep #: [id number] : 1960 Provider: Dr. Festus Figueroa MD Age/Sex: 59/M Location: [facility] Status: Signed Assessment and Plan Assessment and Plan (1) Asthma: Status: Chronic Qualifiers: Asthma severity: severe Asthma persistence: persistent Asthma complication type: uncomplicated Qualified Code(s): J45.50 - Severe persistent asthma, uncomplicated Comment: On Fasenra through Dr. 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 Festus Figueroa MD: Patient appears to be doing well from a respiratory standpoint after initiation of biologic therapy. This is being arranged through his allergy physician. Patient will be given a refill of Trelegy, but is asking to follow-up with his grip boss on a continual basis. Did discuss with the patient on the importance of smoking avoidance for all family members given his alpha-1 antitrypsin carrier status. Refill Trelegy. Follow-up with allergy moving forward. Plan Details Other Medications: Refilled: fluticasone-umeclidin- vilanter 100-62.5-25 mcg (Trelegy Ellipta) 1 inh inhalation DAILY 3 device 3RF Follow Up: PRN HPI 3 M FU Details: Patient is a 59-year-old [place] male, currently under the care of Dr. Everett, who presents for evaluation secondary to asthma. Patient has been lost to follow-up for almost a year. Patient reportedly followed up with Dr. Hernandez and was placed on Fasenra therapy. Patient reportedly was able to get this at no cost to a drug assistance program. Since initiation in approximately November 2019, patient has not required any further prednisone. Patient has not using any of his allergy medications and has not required any albuterol. Patient is not reporting any missed work or problems sleeping. Patient remains compliant with Trelegy therapy. Patient denies any complications such as thrush, hoarseness or sore throat. Patient has not reporting any current tobacco exposure. Patient has had a cough productive of clear phlegm in the morning, but no unintentional weight loss, chest pain or hemoptysis has been reported. Review of systems otherwise negative from a constitutional, HEENT, respiratory, cardiovascular, GI, genitourinary, musculoskeletal, skin, neurologic, psychiatric and hematologic system unless stated above. Intake Vital Signs 12/06/20 06:34 12/06/20 06:36 12/06/20 06:39 Height 5 ft 4.5 in 5 ft 4.5 in Weight: 83.915 kg 83.915 kg BMI 31.2 30.4 31.2 BP 136/69 H Blood Pressure Location Lt brachial Position Sitting Respiration 16 Pulse 70 Pulse Source Monitor Temp 36.7 C Temperature Source Tympanic Pulse Oximetry (%) 97 Oxygen Delivery Method room air Intake Visit Reasons: 3 M FU Allergies No Known Allergies Allergy (Verified 12/06/20 06:35) Medications metoprolol succinate 100 mg tablet,extended release 24 hr 100 mg PO DAILY 08/19/18 [History Confirmed 12/06/20] albuterol sulfate 90 mcg/actuation aerosol inhaler 2 puff INHALATION Q6H PRN 08/22/18 [History Confirmed 12/06/20] doxazosin 4 mg tablet 4 mg PO DAILY 08/22/18 [History Confirmed 12/06/20] albuterol sulfate 2.5 mg INHALATION Q4H PRN #180 ml 08/25/19 [Rx Confirmed 12/06/20] nystatin 100,000 unit/mL oral suspension 5 ml MUCOUS MEMBRANE TID #250 ml 08/25/19 [Rx Confirmed 12/06/20] benralizumab 30 mg/mL subcutaneous syringe 30 mg SUBCUT Q8W 12/06/20 [History Confirmed 12/06/20] fluticasone fur. 100 mcg-umeclid 62.5 mcg-vilant 25 mcg inhalat.powder 1 inh INHALATION DAILY #3 device 12/06/20 [Rx Confirmed 12/06/20] [facility] Medical History (Updated 12/06/20 @ 07:[address] Festus Figueroa MD) Asthma Hypertension Surgical History (Reviewed 08/25/19 @ 07:56 by Halina Perry LIQUID FERTILIZER SERVICER, LIQUID FERTILIZER SERVICER-C) History of tonsillectomy Social History (Updated 08/25/19 @ 10:41 by Halina Perry LIQUID FERTILIZER SERVICER, LIQUID FERTILIZER SERVICER-C) Smoking Status: Former smoker how long ago did patient quit smokin, 0.25ppd second hand exposure: Yes Exam Const Constitutional: Positive conversant, cooperative, in no acute respiratory distress, healthy appearing, well developed, well nourished and good hygiene Head Head: Yes normocephalic, Yes atraumatic and No cyanosis of lips/distal nose Eyes Eye: Positive clear conjunctiva; Negative nystagmus, scleral abnormality or cataract present Ears Ear: Positive hearing normal and external ears normal; Negative hard of hearing Nose Nose: Yes external nose normal, No nasal polyp and Yes septum rj (more content not included)... Normal [facility] Encounters Encounter Date Encounter Type Care Provider Facility Start: 05-03-2025 End: 05-03-[address] [facility] Payers Date Payer Category Payer Unknown [id number] 1960 Unknown [id number] 1960 Unknown [id number] Unknown Unknown 101 Summary Purpose Family History No Family History Records FoundNo Family History Records Found Advance Directives No Advanced Directives Records FoundNo Advanced Directives Records Found Additional Source Comments (unrecognized sect ion and content) No Status Records FoundNo Status Records Found INFORMATION SOURCE (unrecogn ized section and content) DATE CREATED AUTHOR 09/16/2021 [facility] DATE CREATED AUTHOR AUTHOR'S ORGANIZ ATION 05/13/2025 Duane Perez [facility] FOR RECORDS PERTAINING TO PATIENTS WHO ARE OR HAVE BEEN ENROLLED IN A CHEMICAL DEPENDENCY/SUBSTANCEABUSE PROGRAM, SOME INFORMATION MAY BE OMITTED. This clinical summary was aggregated from multiple sources. Caution should be exercised in using it in the provision of clinical care. This summary normalizes information from multiple sources, and as a consequence, information in this document may materially change the coding, format and clinical context of patient data. In addition, data may be omitted in some cases. CLINICAL DECISIONS SHOULD BE BASED ON THE PRIMARY CLINICAL RECORDS. [facility]. provides no warranty or guarantee of the accuracy or completeness of information in this document.
[2025-06-30 05:08] VITALS: BP 124/67; PULSE 79; RESP 16; TEMP 36.6; O2SAT 97
== END 2025-06-30 05:40 | disposition home or self-care (01) ==
PROVIDERS: Emergency Provider Emergency Medicine; Visit Provider Emergency Medicine
DX: N40.1 Benign prostatic hyperplasia with lower urinary tract symptoms (principal); R33.8 Other retention of urine; I10 Essential (primary) hypertension; J45.909 Unspecified asthma, uncomplicated; Z79.899 Other long term (current) drug therapy; Z79.51 Long term (current) use of inhaled steroids
CPT/HCPCS: 51702; 99283

== ENCOUNTER 2025-07-03 15:36 | Emergency (ER) | payer OTHER, SELFPAY ==
[2025-07-03 15:36] VITALS: BP 107/54; PULSE 89; RESP 16; TEMP 36.6; O2SAT 99; BMI 30.7
--- NOTE | 2025-07-03 15:53 | EX.ED.GUMALE ---
HPI History of Present Illness Chief Complaint: Complaint Informant: patient Pain Onset: Today and Yesterday Context: Gradual Onset Timing: Continuous Current Severity: Mild Maximum Severity: Mild Narrative Narrative: 64-year-old Advent male with history of BPH and hypertension. He had bilateral knee replacements last Saturday by Dr. Waqar Henderson. Patient to come here on Saturday overnight to have a catheter placed due to unable to urinate. Has been doing well so the catheter appears to be draining. He said it was uncomfortable. He wants to make sure his urine is not infected. He denies any significant bleeding. No fever. Prior similar symptoms: No Recent Illness/[facility]: [facility] Medical History (Updated 07/03/25 @ 16:[address] Carlos Guzman MD) Asthma Hypertension Home Medications ?Medication ?Instructions ?Recorded ?Last Taken ?Type doxazosin 4 mg tablet 2 mg PO DAILY 08/22/18 Unknown History benralizumab 30 mg/mL subcutaneous 30 mg subcut Q8W 12/06/20 Unknown History syringe (Fasenra) fluticasone fur. 100 mcg-umeclid 1 inh inhalation DAILY #3 device 12/06/20 Unknown Rx 62.5 mcg-vilant 25 mcg inhalat.powder (Trelegy Ellipta) hydrochlorothiazide 12.5 mg tablet 12.5 mg PO QDAY 06/30/25 Unknown History telmisartan 40 mg tablet 40 mg PO DAILY 06/30/25 Unknown History Allergy/AdvReac Type Severity Reaction Status Date / Time No Known Allergies Allergy Verified 07/03/25 15:38 Surgical History History of tonsillectomy Social History Smoking Status: Never smoker how long ago did patient quit smokin, 0.25ppd second hand exposure: Yes ROS ROS ED ROS Narrative Denies recent illness. Constitutional Constitutional ED: Denies chills or fever(s) ENT ENT ED: Denies ear pain Cardiovascular Cardiovascular: Denies chest pain Respiratory/Chest Respiratory/Chest: Denies cough or dyspnea Gastrointestinal Gastrointestinal: Denies abdominal pain Genitourinary Genitourinary ED: Denies dysuria or hematuria Musculoskeletal Musculoskeletal: Denies arthralgias Integumentary Denies abscess or rash Neurologic Neurologic: Denies headache(s) Psychiatric Psychiatric: Denies anxiety or depression Endocrine Endocrinology: Denies polydipsia or polyphagia Hematologic/Lymphatic Hematologic/Lymphatic: Denies easy bleeding, easy bruising or lymphadenopathy Allergic/Immunologic Allergic/Immunologic ED: Denies mouth swelling, tongue swelling or urticaria EXAM Physical Exam Narrative Exam Narrative: Center lab bed vital signs stable afebrile at bedside. He is in no acute distress. H EENT exam pupils round react light. Moist mucous membranes. Lungs good auscultation bilaterally. Heart regular rhythm no murmur. Abdomen soft nondistended normal bowel sounds without peritoneal signs. Moving all 4 extremities. Dorsi plantarflexion intact. Dressings in place in both knees from recent knee replacements. Normal manager of manufacturing strength. Neurologically is awake alert. Answering questions following commands. He has a Guzman catheter in place clear yellow urine. No gross hematuria does not look grossly infected. Const Vital Signs: 07/03/25 15:36 Temperature 98 F Temperature Source Oral Pulse Rate 89 Respiratory Rate 16 Blood Pressure 107/54 L Blood Pressure Mean 71 Pulse Ox 99 Oxygen Delivery Method Room Air MDM MDM MDM Narrative Medical decision making narrative: 64-year-old male was having urinary retention after having knee replacement surgeries last Saturday had a Guzman catheter placed. Urine does not look infected he requested that we check a urinalysis be obtained. All nurses irrigate the Guzman make sure it is draining well but it appears to be. The urine is clear and yellow. Repeat exam patient is doing well at 4:56 PM. To be discharged to home. We discussed his test results. History & Record Review Discussion w/independent historian: Patient and Family Additional record(s) reviewed:: Prior outpatient record, Prior ED visit and Prior labs Lab Data Attestation: I reviewed the patient's lab results. Lab results narrative: Urinalysis shows no acute abnormality. No nitrates. 5-10 red cells. 250 occult blood. No white cells. No bacteria. Blood is consistent with a Guzman catheter. Nursing also checked his Guzman catheter and irrigated easily. Appear to be in good position. Flowing well. Labs: Laboratory Results - last 24 hr 07/03/25 16:00 Urine Color Yellow Urine Clarity Clear Urine pH 6.0 Ur Specific [place] 1.010 Urine Protein 30 H Urine Glucose (UA) Normal Urine Ketones Negative Urine Occult Blood 250 H Urine Nitrite Negative Urine Bilirubin Negative Urine Urobilinogen Normal Ur Leukocyte Esterase 25 H Urine RBC 5-10 SEEN Urine WBC 0 SEEN Ur Squamous Epith Cells 0 SEEN Urine Bacteria 0 SEEN Urine Mucus 0 SEEN Discharge Plan Triage Chief Complaint: Complaint ED Provider: Carlos Guzman Dx/Rx/DC Orders Clinical Impression: Guzman catheter in place, History of urinary retention, History of BPH Prescriptions: No Action doxazosin 4 mg tablet 2 mg PO DAILY Fasenra 30 mg/mL syringe 30 mg subcut Q8W Trelegy Ellipta 100-62.5-25 mcg blister with device 1 inh INHALATION DAILY Qty: 3 3RF telmisartan 40 mg tablet 40 mg PO DAILY hydrochlorothiazide 12.5 mg tablet 12.5 mg PO QDAY Primary Care Provider: Care Physician,No Primary Referrals: Osmani Granados MD [Med Staff - Active Staff, Urology] - Keep Libby appointment Care Physician,No Primary [Primary Care Provider, Medical] Activity Restrictions/Additional Instructions: Your urine looks good. No signs of infection. The catheter appears to be in place. Follow-up with your upcoming urology appointment. Print Language: Frisian Disposition Disposition: Home, Self Care
--- OUTSIDE RECORDS SUMMARY | 2025-07-03 15:57 | XMS RPT_ITS | CCD ---
Author Organization [facility] Care Team Providers Care Animal Taxonomist Name Role Phone TAMAR SNELL DR Primary [...] [Mass/Vol] 3.6 g/dL Normal 3.4 - 5.0 [facility] Comment on above: Performed By: #### 2 03682 #### [facility],[address] [place] [address] [phone] BMP with eGFRon 05-03-2025 AGE 64 years Normal [facility] Comment on above: Performed By: #### 2 12970 #### [facility],[address] [place] [address] 87841 Anion gap [Moles/Vol] 7 mmol/L Low 10 - 20 [facility] Comment on above: Performed By: #### 2 84667 #### [facility],[address] [place] [address] 46086 BMP with eGFR Normal [facility] Comment on above: Result Comment: BASI C METABOLIC PANEL Performed By: #### 2 76082 #### [facility],[address] [place] [address] 35868 Calcium [Mass/Vol] 8.4 mg/dL Low 8.5 - 10.1 [facility] Comment on above: Performed By: #### 2 29103 #### [facility],[address] [place] [address] 28474 Chloride [Moles/Vol] 101 mmol/L Normal 98 - 107 [facility] Comment on above: Performed By: #### 2 61981 #### [facility],[address] [place] [address] 49809 CO2 [Moles/Vol] 31.8 mmol/L Normal 21.0 - 32.0 [facility] Comment on above: Performed By: #### 2 51407 #### [facility],[address] [place] [address] 52662 Creatinine [Mass/Vol] 1.02 mg/dL Normal 0.70 - 1.30 [facility] Comment on above: Performed By: #### 2 50192 #### [facility],[address] [place] [address] 33221 GFR/1.73 sq M.predicted among non-blacks MDRD (S/P/Bld) [Vol rate/Area] mL/min/{1.73_m2} Normal 60 - 999 [facility] Comment on above: Performed By: #### 2 91653 #### [facility],[address] [place] [address] 73606 Result Comment: ACCO RDING TO THE NATIONAL KIDNEY DISEASE EDUCATION PROGRAM(NKDE), A NORMAL eGFR IS A VALUE GREATER THAN OR EQUAL TO 60 ML/MIN/1.73 SQ METERS. CHRONIC KIDNEY DISEASE: <60mL/MIN/1.73 SQ METERS KIDNEY FAILURE: <15mL/MIN/1.73 SQ METERS THIS TEST SHOULD ONLY BE USED FOR PATIENTS 18 YEARS OF AGE AND OLDER. Glucose [Mass/Vol] 91 mg/dL Normal 74 - 106 [facility] Comment on above: Performed By: #### 2 91969 #### [facility],[address] [place] [address] 41025 Potassium [Moles/Vol] 3.6 mmol/L Normal 3.5 - 5.1 [facility] Comment on above: Performed By: #### 2 82010 #### [facility],[address] [place] [address] 76466 Sodium [Moles/Vol] 136 mmol/L Normal 136 - 145 [facility] Comment on above: Performed By: #### 2 79582 #### [facility],[address] [place] [address] 49115 Urea nitrogen [Mass/Vol] 14 mg/dL Normal 7 - 18 [facility] Comment on above: Performed By: #### 2 79909 #### [facility],[address] [place] [address] 80609 CBC + DIFFon 05-03-2025 Baso # 0.03 x10EE3/UL Normal 0.00 - 0.10 [facility] Comment on above: Performed By: #### 2 13850 #### [facility],[address] [place] [address] 74759 Basophils/100 WBC (Bld) 0.4 % Normal 0.0 - 2.0 [facility] Comment on above: Performed By: #### 2 99051 #### [facility],[address] [place] [address] 26701 CBC + DIFF Normal [facility] Comment on above: Result Comment: CBC- COMPLETE BLOOD COUNT Performed By: #### 2 39419 #### [facility],[address] [place] [address] 49549 EO # 0.02 x10EE3/UL Normal 0.00 - 0.50 [facility] Comment on above: Performed By: #### 2 53706 #### [facility],[address] [place] [address] 33961 Eosinophils/100 WBC (Bld) 0.3 % Normal 0.0 - 7.0 [facility] Comment on above: Performed By: #### 2 09435 #### [facility],[address] [place] [address] Erythrocyte distribution width (RBC) [Ratio] 13.0 % Normal 12.0 - 15.6 [facility] Comment on above: Performed By: #### 2 29636 #### [facility],[address] [place] [address] Hematocrit (Bld) [Volume fraction] 44.5 % Normal 40.0 - 52.0 [facility] Comment on above: Performed By: #### 2 31605 #### [facility],[address] [place] [address] Hemoglobin (Bld) [Mass/Vol] 15.4 g/dL Normal 13.0 - 17.5 [facility] Comment on above: Performed By: #### 2 24216 #### [facility],[address] [place] [address] Lymph # 1.09 x10EE3/UL Normal 0.80 - 2.80 [facility] Comment on above: Performed By: #### 2 51725 #### [facility],[address] [place], [place] [id number] Lymphocytes/100 WBC (Bld) 17.3 % Low 20.0 - 45.0 [facility] Comment on above: Performed By: #### 2 31908 #### [facility],[address] [place] [address] 84333 MANUAL DIFF N/A Normal [facility] Comment on above: Performed By: #### 2 91050 #### [facility],[address] [place] [address] 87686 MCH (RBC) [Entitic mass] 31 pg Normal 27 - 33 [facility] Comment on above: Performed By: #### 2 02853 #### [facility],[address] [place] [address] MCHC 35 X10 3 Normal 32 - 36 [facility] Comment on above: Performed By: #### 2 87903 #### [facility],[address] [place] [address] MCV (RBC) [Entitic vol] 90 fL Normal 81 - 98 [facility] Comment on above: Performed By: #### 2 36297 #### [facility],[address] [place] [address] Bradley # 0.83 x10EE3/UL Normal 0.20 - 1.00 [facility] Comment on above: Performed By: #### 2 43543 #### [facility],[address] [place] [address] MONOS % 13.2 % High 0.0 - 10.0 [facility] Comment on above: Performed By: #### 2 09972 #### [facility],[address] [place] [address] Morphology Francisco (Bld) [Interp] N/A Normal [facility] Comment on above: Performed By: #### 2 26955 #### [facility],[address] [place] [address] Neut # 4.34 x10EE3/UL Normal 1.50 - 7.10 [facility] Comment on above: Performed By: #### 2 92143 #### [facility],[address] [place] [address] Neutrophils/100 WBC (Bld) 68.9 % Normal 46.0 - 76.0 [facility] Comment on above: Performed By: #### 2 55119 #### [facility],[address] [place] [address] PLATELET 215 x10EE3/UL Normal 150 - 450 [facility] Comment on above: Performed By: #### 2 90194 #### [facility],[address],[place] [address] Platelet mean volume (Bld) [Entitic vol] 7.5 fL Normal 6.4 - 10.5 [facility] Comment on above: Result Comment: AUTO MATED DIFFERENTIAL Performed By: #### 2 98649 #### [facility],[address] [place] [address] 06531 RBC 4.97 x 10EE6/UL Normal 4.50 - 6.00 [facility] Comment on above: Performed By: #### 2 54987 #### [facility],[address] [place] [address] 97733 WBC 6.3 x 10EE3/UL Normal 4.5 - 10.8 [facility] Comment on above: Performed By: #### 2 09739 #### [facility],[address] [place] [address] LOWER EXTREMITY LT WOon 0 05-03-2025 CT LOWER EXTREMITY LT WO [address] ? [place] [address] ? Patient: PATRICIA URBINA Phone#: : 1960 Age: 64 Gender: M Pt. Type: Out Account: [id number] Location: Ordering: TAMAR TURNEY Exam Date: 05/03/2025/8:57 Family Phys: SUSAN EVERETT Charge Code: 048636 Physician: [place] Order #: [id number] Dose#: 12.10 mGy PROCEDURE: CT LOWER EXTREMITY LT WO CONTRAST COMPARISON: None. INDICATIONS: [place]. TECHNIQUE: Multi-planar CT images were created without [...] Mandujano MD on 05/03/2025 at 12:50 Normal [facility] CT LOWER EXTREMITY RT WOon 0 05-03-2025 CT LOWER EXTREMITY RT [address] ? [place] [address] ? Patient: PATRICIA URBINA Phone#: : 1960 Age: 64 Gender: M Pt. Type: Out Account: [id number] Location: Ordering: TAMAR SNELL Exam Date: 05/03/2025/9:03 Family Phys: SUSAN EVERETT Charge Code: 012345 Physician: [place] Order #: [id number] Dose#: 12.40 mGy PROCEDURE: CT LOWER EXTREMITY [...] MD on 05/03/2025 at 12:50 Approved by: iXmena Mandujano MD on 05/10/2025 at 13:45 Normal [facility] Pulmonary Visit Reporton Pulmonary Visit Report [facility] [address] [place] [address] OFFICE VISIT Date of Service: 12/06/20 MR#: [id number] Acct: [id number] Name: PATRICIA URBINA Rep #: [id number] : 1960 Provider: Dr. Festus Figueroa MD Age/Sex: 59/M Location: [facility].PMW Status: Signed Assessment and Plan Assessment and Plan (1) Asthma: Status: Chronic Qualifiers: Asthma severity: severe Asthma persistence: persistent Asthma complication type: uncomplicated Qualified Code(s): J45.50 - Severe persistent asthma, uncomplicated Comment: On Fasenra through Dr. 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 Festus Figueroa MD: Patient appears to be doing well from a respiratory standpoint after initiation of biologic therapy. This is being arranged through his allergy physician. Patient will be given a refill of Trelegy, but is asking to follow-up with his warehouse technician on a continual basis. Did discuss with [...] DAILY #3 device 12/06/20 [Rx Confirmed 12/06/20] [facility] Medical History (Updated 12/06/20 @ 07:[address] Festus Figueroa MD) Asthma Hypertension Surgical History History of tonsillectomy Social History (Updated 08/25/19 @ 10:41 by Halina Perry WHEEL MILL OPERATOR, WHEEL MILL OPERATOR-C) Smoking Status: Former smoker how long ago [...] septum rj (more content not included)... Normal [facility] Encounters Encounter Date Encounter Type Care Provider Facility Start: 05-03-2025 End: 05-03-[address] [facility] Payers Date Payer Category Payer Unknown [id number] 1960 Unknown [id number] 1960 Unknown [id number] Unknown Unknown 101 Summary Purpose Family History No Family History Records FoundNo Family History Records Found Advance Directives No Advanced Directives Records FoundNo Advanced Directives Records Found Additional Source Comments (unrecognized sect ion and content) No Status Records FoundNo Status Records Found INFORMATION SOURCE (unrecogn ized section and content) DATE CREATED AUTHOR 09/16/2021 [facility] DATE CREATED AUTHOR AUTHOR'S ORGANIZ ATION 05/13/2025 Duane Perez [facility] FOR RECORDS PERTAINING TO PATIENTS WHO ARE [...] BE BASED ON THE PRIMARY CLINICAL RECORDS. [facility] [employer] [facility]. provides no warranty or guarantee of the accuracy or completeness of information in this document.
[2025-07-03 16:04] LABS: Mucous, Urine 0 SEEN /hpf (<or=2+); Squamous Epithelial Cells - UA 0 SEEN /hpf (0-5)
[2025-07-03 16:07] LABS: Color, Urine Yellow (Yellow); Glucose, Dipstick Normal (Normal); Ketone-Dipstick Negative (Negative); Leukocyte Esterase-Dipstick 25 /ul (Negative); Nitrite-Dipstick Negative (Negative); Occult Blood-Urine 250 /ul (Negative); Protein-Dipstick 30 mg/dl (Negative); Specific Gravity, Urine 1.010 (1.002-1.030); Urine Bilirubin Dipstick Negative (Negative)
--- NOTE | 2025-07-03 16:12 | ED.RN ---
flushed catheter with approx 120 ml of saline, no clots noted. checked balloon, approx 20 ml of air and then 10 ml of saline. reinflated with 10 ml saline. then lubricant to catheter insertion site.
[2025-07-03 16:14] LABS: Red Blood Cells-Urine 5-10 SEEN /hpf (0-5)
[2025-07-03 17:00] VITALS: BP 107/54; PULSE 89; RESP 16; TEMP 36.6; O2SAT 99
== END 2025-07-03 17:01 | disposition home or self-care (01) ==
PROVIDERS: Emergency Provider Emergency Medicine; Visit Provider Emergency Medicine
DX: N40.1 Benign prostatic hyperplasia with lower urinary tract symptoms (principal); R33.8 Other retention of urine; I10 Essential (primary) hypertension; J45.909 Unspecified asthma, uncomplicated; Z79.51 Long term (current) use of inhaled steroids; Z96.653 Presence of artificial knee joint, bilateral; Z79.899 Other long term (current) drug therapy; Z96.0 Presence of urogenital implants
CPT/HCPCS: 81001; 99282; A4216